=== PATIENT | female | born 1955 | race Caucasian/White ===

== ENCOUNTER 2019-09-08 10:10 | Emergency (ER) | payer MEDICARE, SELFPAY ==
[2019-09-08 10:18] VITALS: BP 144/104; PULSE 101; RESP 20; TEMP 36.5; O2SAT 99; BMI 28.6
--- NOTE | 2019-09-08 10:19 | ED_ITS ---
Entered by Vivien Rodriguez, acting as scribe for Roman Barfield MD HPI - Nausea/Vomiting/Diarrhea General: Chief complaint: Nausea/Vomiting/Diarrhea Stated complaint: throwing up Time Seen by Provider: 09/08/19 10:18 Source: patient Mode of arrival: ambulatory Limitations: no limitations History of Present Illness: HPI Narrative: 64-year-old female who has had nausea and vomiting over the last week. She states it got worse over the last 2 days. She denies any abdominal pain. She denies any fevers. She denies any worsening or improving factors. MD elicited complaint: nausea and vomiting Onset (ago): week(s) (1 week) Description of vomiting: watery Description of diarrhea: watery Associated nausea: Yes Associated abdominal pain: Yes Location of pain: Diffuse Radiation: diffuse Pain consistency: constant Severity: moderate Quality: cramping Exacerbating factors: movement Relieving factors: none Associated symtoms: Reports fevers/chills and nausea; Denies chest pain, dysuria or headache(s) Treatment prior to arrival: immodium Review of Systems Const: Denies: fever, chills, body aches or change in appetite Eyes: Denies: blurry vision or eye discomfort ENMT: Denies: throat pain or dental pain Card: Denies: chest pain Resp: Denies: shortness of breath GI: Reports: nausea : Denies: painful urination Musc: Denies: neck pain or back pain Skin/Breast: Denies: rash Neuro: Denies: headache Psych: Denies: depression Jamie/Lymph: Denies: easy bruising All/Imm: Denies: hives PFS ED PFSH: Social History Smoking and tobacco status: current every day smoker Physical Exam Const: COMMON NORMALS: no apparent distress, oriented x3 and healthy appearing HENMT: COMMON NORMALS: normocephalic and head/scalp atraumatic HEAD & SCALP: normocephalic and atraumatic Eye: COMMON NORMALS: PERRL and EOMs intact bilaterally PUPIL: Yes PERRL Neck/C-Spine: COMMON NORMALS: full ROM and supple Chest: COMMONS NORMALS: inspection of chest normal and palpation of chest normal Resp: COMMON NORMALS: normal respiratory effort, no retractions, no use of accessory muscles and clear to auscultation bilaterally AUSCULTATION: clear to auscultation bilaterally Cardio: COMMON NORMALS: regular rate, regular rhythm and no murmurs RATE: regular rate RHYTHM: regular rhythm GI: COMMON NORMALS: normal to inspection, nondistended, normoactive bowel sounds, soft to palpation, non-tender and no masses PALPATION: Yes soft Extremity: COMMON NORMALS: normal to inspection and full ROM Neuro: COMMON NORMALS: oriented x3, moves all extremities and no focal motor deficits Psych: COMMON NORMALS: mental status grossly normal, thought process normal and cooperative THOUGHT PROCESS: normal thought process Skin: COMMON NORMALS: no rashes or lesions noted and no wounds GENERAL SKIN EXAM: no rashes or lesions noted Course Vital Signs: Vital signs: Vital Signs Temperature 97.7 F 09/08/19 10:18 Pulse Rate 101 H 09/08/19 10:18 Respiratory Rate 20 H 09/08/19 10:18 Blood Pressure 144/104 09/08/19 10:18 Pulse Oximetry 98 09/08/19 10:41 MDM - Nausea/Vomiting/Diarrhea MDM Narrative: Medical decision making narrative: Patient presents here with vomiting that is likely viral in origin. She feels much improved here after Zofran is able to tolerate p.o. fluids. Will prescribe Zofran for home. Patient has no signs of acute surgical abdomen or small bowel obstruction. Patient is return if worsening. Lab Data: Labs: Lab Results 09/08/19 09/08/19 Range/Units 10:37 10:37 WBC 7.7 (4.0-10.0) 10^3/ uL RBC 4.76 (4.1-5.3) 10^6/u L Hgb 14.7 (11.5-15.3) g/dL Hct 44.2 (37.0-47.0) % MCV 92.9 (81-99) fL MCH 30.9 (28.0-34.0) pg MCHC 33.3 (30.0-36.0) g/dL RDW 13.4 (12.1-15.1) % Plt Count 328 (130-400) 10^3/c mm MPV 11.4 H (7.4-10.4) fL Neut % (Auto) 59.5 % Lymph % (Auto) 26.8 % [place] % (Auto) 9.9 % Eos % (Auto) 3.0 % Baso % (Auto) 0.7 % Neut # (Auto) 4.6 (1.8-7.7) 10^3/u L Lymph # (Auto) 2.1 (0.8-4.8) 10^3/u L [place] # (Auto) 0.8 (0.2-0.9) 10^3/u L Eos # (Auto) 0.2 (0.0-0.8) 10^3/u L Baso # (Auto) 0.1 (0.0-0.1) 10^3/u L Nucleated RBC % (a uto) 0 % Nucleated RBCs # 0.0 /100WBC Sodium 142 (136-145) mmol/L Potassium 3.3 L (3.5-5.1) mmol/L Chloride 103 (98-107) mmol/L Carbon Dioxide 26 (22-29) mmol/L Anion Gap 16.3 (5-19) BUN 13 (8-23) mg/dL Creatinine 0.5 (0.5-0.9) mg/dL GFR Calculation 125.0 (90-130) mL/min Glucose 94 (65-115) mg/dL Calculated Osmolal ity 290 (285-295) mOsm/k g Calcium 9.7 (8.5-10.5) mg/dL Total Bilirubin 0.5 (0.15-1.2) mg/dL AST 17 (0-32) U/L ALT 11 (0-33) U/L Alkaline Phosphata se 66 (35-105) IU/L Total Protein 7.4 (6.6-8.7) g/dL Albumin 4.3 (3.5-5.2) g/dL Globulin 3.1 (1.3-4.6) g/dL Lipase 37 (13-60) U/L Discharge Plan Discharge Patient Disposition: Home, Self-Care Clinical Impression: Vomiting Qualifiers: Vomiting type: unspecified Vomiting Intractability: non-intractable Nausea presence: with nausea Qualified Code(s): R11.2 - Nausea with vomiting, unspecified Condition: Stable Prescriptions: New Zofran 4 mg tablet 4 mg PO QID PRN (Reason: nausea and vomiting) Qty: 14 RF: 0 Discharge Orders: Discharge Order (Routine); Ordered 09/08/19 Ordered By: Roman Barfield Referrals: [facility] [Other] Brooklyn Valiente MD [Primary Care Provider] - 4-7 days Discharge Diet: Advance as tolerated Discharge Activity: Resume usual activity Patient Instructions: Acute Nausea and Vomiting (ED) Coding Level of Care Code ED Crusher Feeder for Chg Fwd Exam Comprehensive The documentation recorded by the Michael de la rosa Bridget Annette, accurately reflects the service I personally performed and the decisions made by Lico stewart Korby, MD Sep 08, 2019 10:10
[2019-09-08 10:41] VITALS: O2SAT 98
[2019-09-08] MEDS: ondansetron 2 mg/ML SDV 2 mL 4 MG IVP (10:49)
[2019-09-08] MEDS: sodium chloride 0.9% 1,000 ML 999 ML IV (10:49)
[2019-09-08 11:03] LABS: Basophils # 0.1 10^3/uL (0.0-0.1); Basophils % 0.7 %; Eosinophils # 0.2 10^3/uL (0.0-0.8); Hematocrit 44.2 % (37.0-47.0); Hemoglobin 14.7 g/dL (11.5-15.3); Lymphocytes # 2.1 10^3/uL (0.8-4.8); Lymphocytes % 26.8 %; Mean Corpuscular HGB Conc 33.3 g/dL (30.0-36.0); Mean Corpuscular Hemoglobin 30.9 pg (28.0-34.0); Mean Corpuscular Volume 92.9 fL (81-99); Mean Platelet Volume 11.4 fL (7.4-10.4); Monocytes # 0.8 10^3/uL (0.2-0.9); Monocytes % 9.9 %; Neutrophils # 4.6 10^3/uL (1.8-7.7); Neutrophils % 59.5 %; Nucleated Red Blood Cells % 0 %; Platelet Count 328 10^3/cmm (130-400); Red Blood Count 4.76 10^6/uL (4.1-5.3); Red Cell Distribution Width 13.4 % (12.1-15.1); White Blood Count 7.7 10^3/uL (4.0-10.0)
[2019-09-08 11:20] LABS: Alanine Aminotransferase 11 U/L (0-33); Albumin Level 4.3 g/dL (3.5-5.2); Alkaline Phosphatase 66 IU/L (35-105); Anion Gap 16.3 (5-19); Aspartate Amino Transferase 17 U/L (0-32); Blood Urea Nitrogen 13 mg/dL (8-23); Calcium 9.7 mg/dL (8.5-10.5); Carbon Dioxide 26 mmol/L (22-29); Chloride 103 mmol/L (98-107); Globulin 3.1 g/dL (1.3-4.6); Glucose 94 mg/dL (65-115); Lipase 37 U/L (13-60); Osmolality Calculated 290 mOsm/kg (285-295); Potassium 3.3 mmol/L (3.5-5.1); Sodium 142 mmol/L (136-145); Total Bilirubin 0.5 mg/dL (0.15-1.2); Total Protein 7.4 g/dL (6.6-8.7)
[2019-09-08 12:01] VITALS: BP 149/65; PULSE 80; RESP 17; O2SAT 97
== END 2019-09-08 12:02 | disposition home or self-care (01) ==
PROVIDERS: Emergency Provider Emergency Medicine; PCP Family Medicine
DX: R11.10 Vomiting, unspecified (principal); F17.200 Nicotine dependence, unspecified, uncomplicated
CPT/HCPCS: 12345; 80053; 83690; 85025; 96361; 96374; 96375; 99282; 99283; J2405; J7030

== ENCOUNTER 2019-12-11 09:47 | Emergency (ER) | payer MEDICARE, SELFPAY ==
[2019-12-11 09:56] VITALS: BP 114/83; PULSE 107; RESP 17; TEMP 36.4; O2SAT 97; BMI 28.6
--- NOTE | 2019-12-11 10:01 | ED_ITS ---
HPI - Nausea/Vomiting/Diarrhea General: Chief complaint: Nausea/Vomiting/Diarrhea Stated complaint: diarrhea x 2 days Time Seen by Provider: 12/11/19 10:00 Source: patient Mode of arrival: ambulatory Limitations: no limitations History of Present Illness: HPI Narrative: Patient presents today with complaints of nausea and diarrhea. Patient reports no blood in the vomit or diarrhea. Patient states the diarrhea started yesterday and she has tried some Imodium with minimal to no relief. Patient reports that they had started her on Prilosec a few weeks ago and stopped her diclofenac. Patient appears mildly unwell. Patient appears in no pain. MD elicited complaint: nausea and diarrhea Associated nausea: Yes Associated symtoms: Reports nausea Review of Systems General: Reports: 10 or more systems reviewed and unremarkable except in HPI and below GI: Reports: nausea and diarrhea PFSH ED PFSH: Social History Smoking and tobacco status: current every day smoker Physical Exam Const: COMMON NORMALS: no acute distress and patient oriented x3 GENERAL APPEARANCE: cooperative HENMT: COMMON NORMALS: normocephalic, TM's normal bilaterally and Normal external nose present HEAD & SCALP: normal to inspection and normocephalic NOSE: Normal external nose present TYMPANIC MEMBRANE: TM's normal bilaterally MOUTH: Normal oral and palatal mucosa present THROAT: posterior oropharynx normal Eye: GENERAL EYE: appearance normal, both eyes and all related structures Neck/C-Spine: COMMON NORMALS: full ROM Lymph: LYMPHATIC: no lymphadenopathy noted Chest: COMMONS NORMALS: normal inspection of the chest Resp: COMMON NORMALS: normal respiratory effort EFFORT & INSPECTION: Yes able to speak in complete sentences Cardio: COMMON NORMALS: regular rate and regular rhythm RATE: regular rate RHYTHM: regular rhythm GI: COMMON NORMALS: non-tender AUSCULTATION: Yes Hyperactive bowel sounds present : COMMON NORMALS: Yes no CVA tenderness BLADDER/KIDNEY EXAM: Yes no CVA tenderness Back/Pelvis: COMMON NORMALS: no CVA tenderness and thoracic and lumbar spine normal to inspection Extremity: COMMON NORMALS: normal to inspection Neuro: COMMON NORMALS: patient oriented x3 and moves all extremities Psych: COMMON NORMALS: mental status grossly normal and cooperative Skin: COMMON NORMALS: no rashes or lesions noted GENERAL SKIN EXAM: no rashes or lesions noted Course Vital Signs: Vital signs: Vital Signs Temperature 97.5 F L 12/11/19 09:56 Pulse Rate 75 12/11/19 12:14 Respiratory Rate 16 12/11/19 12:14 Blood Pressure 115/75 12/11/19 12:14 Pulse Oximetry 98 12/11/19 12:14 MDM - Nausea/Vomiting/Diarrhea MDM Narrative: Medical decision making narrative: Patient comes in for nausea and diarrhea starting yesterday evening. Exam notes respirations are even lungs are clear to auscultation. Bowel sounds were hyperactive. Vital signs were normal except for some mild elevation in pulse rate. Differential diagnosis include cholecystitis, appendicitis, gastroenteritis, cystitis, diverticulitis. Laboratory values noted no elevation in white blood cell count, electrolytes were normal, and liver enzymes were normal. Urinalysis was clear. Patient was given a dose of Zofran and 500 mL's of normal saline in the ER with improvement of symptoms. CT scan of the abdomen noted a enteritis. Reviewed exam with patient with recommendations for treatment and follow-up. Patient reported understanding and agreed to plan. Lab Data: Labs: Lab Results 12/11/19 12/11/19 12/11/19 Range/Units 10:20 10:28 10:28 WBC 9.4 (4.0-10.0) 10^3/ uL RBC 5.06 (4.1-5.3) 10^6/u L Hgb 14.8 (11.5-15.3) g/dL Hct 45.9 (37.0-47.0) % MCV 90.7 (81-99) fL MCH 29.2 (28.0-34.0) pg MCHC 32.2 (30.0-36.0) g/dL RDW 13.2 (12.1-15.1) % Plt Count 372 (130-400) 10^3/c mm MPV 10.9 H (7.4-10.4) fL Neut % (Auto) 68.0 % Lymph % (Auto) 16.2 % [place] % (Auto) 12.8 % Eos % (Auto) 2.6 % Baso % (Auto) 0.2 % Neut # (Auto) 6.4 (1.8-7.7) 10^3/u L Lymph # (Auto) 1.5 (0.8-4.8) 10^3/u L [place] # (Auto) 1.2 H (0.2-0.9) 10^3/u L Eos # (Auto) 0.2 (0.0-0.8) 10^3/u L Baso # (Auto) 0.0 (0.0-0.1) 10^3/u L Nucleated RBC % (a uto) 0 % Nucleated RBCs # 0.0 /100WBC Sodium 138 (136-145) mmol/L Potassium 3.6 (3.5-5.1) mmol/L Chloride 100 (98-107) mmol/L Carbon Dioxide 21 L (22-29) mmol/L Anion Gap 20.6 H (5-19) BUN 20 (8-23) mg/dL Creatinine 0.7 (0.5-0.9) mg/dL GFR Calculation 84.8 L (90-130) mL/min Glucose 91 (65-115) mg/dL Calculated Osmolal ity 282 L (285-295) mOsm/k g Calcium 9.7 (8.5-10.5) mg/dL Total Bilirubin 0.2 (0.15-1.2) mg/dL AST 32 (0-32) U/L ALT 27 (0-33) U/L Alkaline Phosphata se 118 H (35-105) IU/L Total Protein 7.7 (6.6-8.7) g/dL Albumin 3.9 (3.5-5.2) g/dL Globulin 3.8 (1.3-4.6) g/dL Lipase 60 (13-60) U/L Urine Color Yellow (Yellow) Urine Appearance Hazy A (CLEAR) Urine pH 5.0 (5-7) Ur Specific Gravit y 1.020 (1.005-1.030) Urine Protein Trace (Negative) Urine Glucose (UA) Norm (Normal) Urine Ketones 1+ H (Negative) Urine Blood Neg (Negative) Urine Nitrate Negative (Negative) Urine Bilirubin 1+ H (NEGATIVE) Urine Urobilinogen 1 H (Negative) mg/dL Ur Leukocyte Amy ase Trace H (Negative) Urine RBC Rare (0-2) /hpf Urine WBC 0-4 H (0-5) /hpf Ur Squamous Epith Cells 5-10 H (0-5) Urine Bacteria 1+ H (NONE) Urine Mucus 3+ Discharge Plan Discharge Patient Disposition: Home, Self-Care Clinical Impression: Gastroenteritis Condition: Stable Prescriptions: New Lomotil 2.5-0.025 mg tablet 1 tab PO QID PRN (Reason: diarrhea) Qty: 10 RF: 0 Zofran 4 mg tablet 4 mg PO QID PRN (Reason: nausea and vomiting) Qty: 14 RF: 0 Discharge Orders: Discharge Order (Routine); Ordered 12/11/19 Ordered By: Prosper Maxwell Referrals: [facility] [Other] Brooklyn Valiente MD [Primary Care Provider] - Discharge Diet: Advance as tolerated Discharge Activity: Increase activity as tolerated Patient Instructions: Gastroenteritis (ED) Activity Restrictions/Additional Instructions: Drink plenty of fluids. Use medication for nausea. Drink an electrolyte s olution like Pedialyte to help maintain normal electrolyte balance. Increase diet to a clear liquid then to a bland diet over the next 24 to 48 hours. Return to the ER for high fever or blood in vomit or stool. Follow-up with primary care in 1 week. Discharge Date/Time: 12/11/19 12:14 Coding Level of Care Code ED House Steward/Stewardess for Arelyg Fwd Exam Comprehensive
[2019-12-11] MEDS: ondansetron 2 mg/ML SDV 2 mL 4 MG IVP (10:31)
[2019-12-11] MEDS: sodium chloride 0.9% 500 ML 999 ML IV (10:32)
[2019-12-11 10:35] LABS: Basophils % 0.2 %; Eosinophils # 0.2 10^3/uL (0.0-0.8); Eosinophils % 2.6 %; Hematocrit 45.9 % (37.0-47.0); Hemoglobin 14.8 g/dL (11.5-15.3); Lymphocytes # 1.5 10^3/uL (0.8-4.8); Lymphocytes % 16.2 %; Mean Corpuscular HGB Conc 32.2 g/dL (30.0-36.0); Mean Corpuscular Hemoglobin 29.2 pg (28.0-34.0); Mean Corpuscular Volume 90.7 fL (81-99); Mean Platelet Volume 10.9 fL (7.4-10.4); Monocytes # 1.2 10^3/uL (0.2-0.9); Monocytes % 12.8 %; Neutrophils # 6.4 10^3/uL (1.8-7.7); Nucleated Red Blood Cells % 0 %; Platelet Count 372 10^3/cmm (130-400); Red Blood Count 5.06 10^6/uL (4.1-5.3); Red Cell Distribution Width 13.2 % (12.1-15.1); White Blood Count 9.4 10^3/uL (4.0-10.0)
[2019-12-11 10:43] LABS: Add Urine Microscopic? YES; Bilirubin Urine 1+ (NEGATIVE); Blood Urine Neg (Negative); Glucose Urine UA Norm (Normal); Ketones Urine 1+ (Negative); Leukocyte Esterase Urine Trace (Negative); Nitrate Urine Negative (Negative); Protein Urine Trace (Negative); RBC Urine RARE /hpf (0-2); Urine Appearance Hazy (CLEAR); Urine Color Yellow (Yellow); Urobilinogen Urine 1 mg/dL (Negative); WBC Urine 0-4 /hpf (0-5)
[2019-12-11 10:44] LABS: Add Urine Culture? No; Bacteria Urine 1+; Mucus Urine 3+
[2019-12-11 10:50] LABS: Alanine Aminotransferase 27 U/L (0-33); Albumin Level 3.9 g/dL (3.5-5.2); Alkaline Phosphatase 118 IU/L (35-105); Anion Gap 20.6 (5-19); Aspartate Amino Transferase 32 U/L (0-32); Blood Urea Nitrogen 20 mg/dL (8-23); Calcium 9.7 mg/dL (8.5-10.5); Carbon Dioxide 21 mmol/L (22-29); Chloride 100 mmol/L (98-107); Globulin 3.8 g/dL (1.3-4.6); Glomerular Filtration Rate 84.8 mL/min (90-130); Glucose 91 mg/dL (65-115); Lipase 60 U/L (13-60); Osmolality Calculated 282 mOsm/kg (285-295); Potassium 3.6 mmol/L (3.5-5.1); Sodium 138 mmol/L (136-145); Total Bilirubin 0.2 mg/dL (0.15-1.2); Total Protein 7.7 g/dL (6.6-8.7)
--- NOTE | 2019-12-11 10:54 | CT_ITS ---
WS: [id number] CT ABDOMEN AND PELVIS WITH CONTRAST HISTORY: abd pain, diarrhea and nausea TECHNIQUE: Imaging performed of the abdomen and pelvis with IV contrast. Single phase imaging of the abdomen. Coronal and sagittal reformats are submitted. All CT scans at [facility] use at least one of these dose optimization techniques: automated exposure control; mA and/or kV adjustment per patient size (includes targeted exams where dose is matched to clinical indication); or iterativ e reconstruction. IV CONTRAST: Omnipaque 300; 95 mL IV. Oral contrast: No DLP: 626.68 mGy.cm COMPARISON: None available. Lower thorax: Linear atelectasis at the lingula. Heart is normal size. Moderate size hiatal hernia. Liver/biliary system: Low-attenuation nodule along the diaphragmatic surface of the RIGHT lobe the li chad measures 12 x 11 mm. Slightly increased in size since 2011. Liver is normal size. No bile duct di latation. Gallbladder: Mildly enlarged gallbladder but there is no wall thickening or adjacent inflammation. Pancreas: Normal. Spleen: Normal size spleen with granulomata. Adrenal glands: Long-term stability 15 x 23 mm RIGHT adrenal nodule. Unchanged since 08/24/2011. LEFT a drenal gland is negative. Right kidney: Cortical thinning and scarring in the posterior mid kidney. No obstruction. No solid ma ss. Left kidney: Cortical cyst upper pole measures 8 mm. Aorta: Atherosclerosis with no aneurysm. Lymphadenopathy: There are numerous small lymph nodes in the RIGHT lower quadrant measuring less than 1 cm. Free fluid: None. GI tract: No GI tract obstruction. There is mild wall thickening and hyperemia at the region of the t erminal ileum and cecum but no obstruction. The appendix is normal size but does contain a calcificat ion. Abdominal wall: Unremarkable abdominal wall. No hernia. Pelvis: Normal. Bones: Severe LEFT convex curvature the lumbar spine. Severe degenerative changes throughout the lumb ar spine. CT/CT abdomen pelvis w con* [id number] IMPRESSION: 1. No GI tract obstruction. 2. There is very mild hyperemia and mucosal thickening at the terminal ileum a nd cecum. 3. RIGHT lower quadrant lymph nodes. The number of lymph nodes is increased bu t the size of the lymph nodes is less than a centimeter. Consider mesenteric ad enitis. 4. 5 the appendix is normal but does contain an appendicolith. 5. Minimally distended gallbladder with no evidence for stones or inflammation . 6. Long-term stability RIGHT adrenal nodule.
[2019-12-11] MEDS: iohexol 300 mg/mL 100 mL Btl IV (11:15)
[2019-12-11 12:14] VITALS: BP 115/75; PULSE 75; RESP 16; O2SAT 98
== END 2019-12-11 12:14 | disposition home or self-care (01) ==
PROVIDERS: Emergency Provider Nurse Practitioner Family; PCP Family Medicine
DX: K52.9 Noninfective gastroenteritis and colitis, unspecified (principal); F17.210 Nicotine dependence, cigarettes, uncomplicated
CPT/HCPCS: 12345; 36415; 74177; 80053; 81001; 83690; 85025; 96374; 96375; 99283; J2405; J7040; Q9967